=== PATIENT | female | born 1980 ===

== ENCOUNTER → 2019-11-06 16:19 | Outpatient (BNVA) | payer OTHER, SELFPAY | PROVIDERS: Family Provider Family Medicine; PCP Family Medicine; Visit Provider Obstetrics & Gynecology | DX: N95.1 Menopausal and female climacteric states (principal); Z78.9 Other specified health status; N81.10 Cystocele, unspecified; N39.3 Stress incontinence (female) (male); N89.8 Other specified noninflammatory disorders of vagina | CPT/HCPCS: 83001; 84443 ==

== ENCOUNTER → 2020-04-18 06:20 | Outpatient (BNVA) | payer OTHER, SELFPAY | PROVIDERS: Family Provider Family Medicine; PCP Family Medicine; Visit Provider Nurse Practitioner Family | DX: Z76.89 Persons encountering health services in other specified circumstances (principal) | CPT/HCPCS: 80061; 82947; 83036 ==

== ENCOUNTER → 2020-08-11 10:39 | Outpatient (BNVA) | payer OTHER, SELFPAY | PROVIDERS: Family Provider Family Medicine; PCP Family Medicine; Visit Provider Obstetrics & Gynecology | DX: Z11.3 Encounter for screening for infections with a predominantly sexual mode of transmission (principal) | CPT/HCPCS: 87491; 87591 ==